=== PATIENT | female | born 1985 | race Hispanic/Latino ===

== ENCOUNTER 2018-03-02 14:34 | Observation (INO) | payer SELFPAY ==
[2018-03-02] MEDS ORDERED: Naloxone HCl 0.4 mg/ml Vial ONE ×2 (14:57→15:01)
[2018-03-02] MEDS ORDERED: Atropine Sulfate 1 mg/10 ml Syringe ONE (15:01)
[2018-03-02 15:23] LABS: Base Excess-Venous -0.5 mmol/L (0 (+/- 2.5)); Bicarbonate (HCO3v) 22.9 mmol/L (1.0-85.0); CO2 Tension (PvCO2) 33.7 mmHg (41.0-51.0); Calcium, Ionized 1.03 mmol/L (1.12-1.32); Hemoglobin - Calc 14.9 g/dL (12.0-18.0); Lactate 1.04 mmol/L (0.50-2.20); O2 Tension (PvO2) 49.1 mmHg (35.0-45.0); Potassium 4.2 mmol/L (3.4-4.7); pH (Venous) 7.442 (7.35-7.45); vO2 Saturation-calc 86.2 % (94-98)
[2018-03-02 15:24] LABS: Bilirubin Negative (Negative); Blood, Urine Negative (Negative); Clarity CLOUDY (Clear); Glucose, Urine (Dipstick) Negative (Negative); Leukocyte Negative (Negative); Nitrite Negative (Negative); Protein, Urine (Dipstick) Trace mg/dL (Neg-Trace); Specific Gravity, Urine 1.021 (1.002-1.036); Urobilinogen 0.2 mg/dL (0.2-1.0); pH, Urine 7.5 (5.0-9.0)
[2018-03-02 15:24] LABS: #Lymphocytes 1.4 thou/uL (1.20-3.40); #Monocytes 0.3 thou/uL (0.11-0.59); %Basophils 0.1 % (0.0-1.0); %Eosinophils 0.1 % (0.0-10.0); %Lymphocytes 8.5 % (21.0-51.0); %Monocytes 1.6 % (0.0-10.0); %Neutrophils 89.7 % (42.0-75.0); Mean Corpuscular HGB CONC 33.9 g/dL (32.0-36.0); Mean Corpuscular Hemoglobin 31.5 pg (27.0-31.0); Mean Corpuscular Volume 93.2 fl (81.0-99.0); Platelet Count 172 thou/uL (130-400); Red Blood Cell (RBC) Count 4.76 mill/uL (4.20-5.40); White Blood Cell (WBC) Count 16.7 thou/uL (4.8-10.8)
[2018-03-02 15:25] LABS: Pregnancy Test - Urine (BHCG) Negative (Negative); Pregu Control Background? CLEAR/WHITE (CLR/WHITE); Pregu Control Bar Appear? YES (CONTROL BAR); Specific Gravity 1.021 (1.002-1.036)
[2018-03-02 15:33] LABS: Medtox Reader # READER 4
[2018-03-02 15:34] LABS: Amphetamine Not Detected (NotDetected); Barbiturates Screen Not Detected (NotDetected); Benzodiazepine Screen Detected (NotDetected); Cocaine Metabolite Screen Not Detected (NotDetected); Medtox Control Line Valid? VALID (VALID); Methadone Not Detected (NotDetected); Methamphetamine Not Detected (NotDetected); Opiate Screen Not Detected (NotDetected); Oxycodone Screen Not Detected (NotDetected); Phencyclidine (PCP) Not Detected (NotDetected); THC/Cannabinoid Screen Detected (NotDetected); Tricyclic Screen Not Detected (NotDetected)
[2018-03-02 15:43] LABS: ALT (SGPT) 16 U/L (8-55); AST (SGOT) 9 U/L (5-34); Albumin 3.7 g/dL (3.5-5.0); Alkaline Phosphatase 32 U/L (40-150); Anion Gap 12 mmol/L (10-20); BUN (Urea Nitrogen) 11 mg/dL (7.0-18.7); Bilirubin, Total 0.4 mg/dL (0.2-1.2); Calc. Creatinine Clearance 0 mL/min (70-130); Calcium 8.1 mg/dL (7.8-10.44); Carbon Dioxide 20 mmol/L (22-29); Chloride 114 mmol/L (98-107); Estimated GFR-MDRD Greater than 90; Globulin 2.6 g/dL (2.4-3.5); Glucose 120 mg/dL (70-105); Lipase 7 U/L (8-78); Potassium 3.6 mmol/L (3.5-5.1); Protein, Total 6.3 g/dL (6.0-8.3); Sodium 142 mmol/L (136-145)
--- NOTE | 2018-03-02 16:46 | PDOC.FPRHP ---
- History of Present Illness Chief Complaint: ams, nv, abd pain History of Present Illness: 32 yo F w/o prior medical hx presents for AMS, abd pain, nv and polysubstance abuse. Family reports she took vicadin and xanax yesterday and smokes marijuana regularly. No trauma. ED Course: Narcan, atropine - Allergies/Adverse Reactions Allergies Allergy/AdvReac Type Severity Reaction Status Date / Time No Known Drug Allergies Allergy Verified 03/02/18 18:43 - History PMHx: Drug abuse PSHx: X2 FHx: CAD, HTN, DMII Social: Current everyday smoker, drug abuse, denies alcohol - Review of Systems ROS unobtainable: due to mental status Gastrointestinal: reports: nausea, vomiting, abdominal pain - Vital signs BP: 144/86 HR: 48-65 RR: 16-22 Tmax: 98.5 Pox: 100% on RA Wt: 81Kg - Physical Exam Constitutional: other (sleeping, difficult to arouse) HEENT: normocephalic and atraumatic, PERRLA, conjunctiva clear, no scleral icterus Neck: no LAD Heart: RRR, normal S1/S2, no murmurs/rubs/gallops, no edema Lungs: CTAB, no respiratory distress, good air movement, no rales/rhonchi, no wheezing, other (sonorous breath sounds) Abdomen: soft, non-tender, bowel sounds present, no masses/distention Neurological: no focal deficit, other (moving all extremities) Skin: capillary refill <2 seconds Heme/Lymphatic: no unusual bruising or bleeding, no purpura FMR H&P: Results - Labs Result Diagrams: 03/02/18 15:16 03/02/18 15:16 Lab results: WBC 16.7 thou/uL (4.8-10.8) H 03/02/18 15:16 Hgb 15.0 g/dL (12.0-16.0) 03/02/18 15:16 Hct 44.4 % (36.0-47.0) 03/02/18 15:16 MCV 93.2 fl (81.0-99.0) 03/02/18 15:16 Plt Count 172 thou/uL (130-400) 03/02/18 15:16 Neutrophils % 89.7 % (42.0-75.0) H 03/02/18 15:16 VBG pCO2 33.7 mmHg (41.0-51.0) L 03/02/18 15:18 VBG pO2 49.1 mmHg (35.0-45.0) H 03/02/18 15:18 Sodium 142 mmol/L (136-145) 03/02/18 15:16 Potassium 3.6 mmol/L (3.5-5.1) 03/02/18 15:16 Chloride 114 mmol/L (98-107) H 03/02/18 15:16 Carbon Dioxide 20 mmol/L (22-29) L 03/02/18 15:16 BUN 11 mg/dL (7.0-18.7) 03/02/18 15:16 Creatinine 0.66 mg/dL (0.6-1.1) 03/02/18 15:16 Glucose 120 mg/dL (70-105) H 03/02/18 15:16 Calcium 8.1 mg/dL (7.8-10.44) 03/02/18 15:16 Total Bilirubin 0.4 mg/dL (0.2-1.2) 03/02/18 15:16 AST 9 U/L (5-34) 03/02/18 15:16 ALT 16 U/L (8-55) 03/02/18 15:16 Alkaline Phosphatase 32 U/L (40-150) L 03/02/18 15:16 Serum Total Protein 6.3 g/dL (6.0-8.3) 03/02/18 15:16 Albumin 3.7 g/dL (3.5-5.0) 03/02/18 15:16 Lipase 7 U/L (8-78) L 03/02/18 15:16 Urine Ketones Negative mg/dL (Negative) 03/02/18 Unknown Urine Blood Negative (Negative) 03/02/18 Unknown Urine Nitrite Negative (Negative) 03/02/18 Unknown Ur Leukocyte Esterase Negative (Negative) 03/02/18 Unknown - EKG Interpretation EKG: sinus bradycardia FMR H&P: A/P - Problem List (1) Symptomatic sinus bradycardia Current Visit: Yes Status: Acute Code(s): R00.1 - BRADYCARDIA, UNSPECIFIED (2) Encephalopathy, toxic Current Visit: Yes Status: Acute Code(s): G92 - TOXIC ENCEPHALOPATHY (3) Cannabinoid hyperemesis syndrome Current Visit: Yes Status: Acute Code(s): F12.988 - CANNABIS USE, UNSP WITH OTHER CANNABIS-INDUCED DISORDER - Plan 1) Symptomatic sinus asael: -pt currently fluctuating from low 50s to 80s -will admit to tele and monitor overnight -likely 2/2 benzo OD -IVF NS, monitor 2)Toxic encephalopathy 2/2 polysubstance abuse -UDS benzos and marijuana - IVF NS -Tele OBS overnight -NPO until mental status improves 3) Cannabinoid hyperemesis syndrome, suspected: -supportive care -monitor on tele - IVF NS Disposition/LOS: stable, </= 2 days FMR H&P: Upper Level - Plan Date/Time: 03/02/185 I, [], have evaluated this patient and agree with findings/plan as outlined by internet network specialist resident. Pertinent changes/additions are listed here. Attending Addendum - Attending Addendum Date/Time: 03/02/182007 I personally evaluated the patient and discussed the management with Dr. Chance. I agree with and repeated the History, Examination, Assessment and Plan documented above with any addition or exceptions noted below. Acute encephalopathy in the setting of polysubstance abuse with persistent nausea and vomiting. I strongly suspect excess of BZD taken, but patient denies. She is currently AOX3 and has no complaints. Will continue on tele. SAMUEL frederick to r/o biliary pathology.
[2018-03-02 17:21] LABS: Troponin I Less than 0.010 ng/mL (< 0.028)
[2018-03-02] MEDS ORDERED: Acetaminophen 325 MG TAB PO PRN (18:44)
[2018-03-02] MEDS ORDERED: Ondansetron ODT 4 MG TAB SL PRN (18:44)
[2018-03-02 18:49] VITALS: BMI 31.4
[2018-03-02 19:38] LABS: Troponin I Less than 0.010 ng/mL (< 0.028)
[2018-03-02] MEDS: Sodium Chloride 0.9% 1,000 ML IV SCH ×2 (19:51→20:52)
[2018-03-02] MEDS: Ondansetron HCl/PF 4 MG/2 ML Vial IVP PRN (20:53)
[2018-03-02] MEDS: Famotidine 20 MG TAB PO SCH (20:53)
[2018-03-02] MEDS: Nicotine 14 MG PATCH TD SCH (20:54)
[2018-03-02 22:02] LABS: Troponin I Less than 0.010 ng/mL (< 0.028)
[2018-03-03] MEDS: Sodium Chloride 0.9% 1,000 ML IV SCH ×3 (03:52→15:33)
[2018-03-03] MEDS: Acetaminophen 325 MG TAB PO PRN ×2 (04:08→16:04)
[2018-03-03 04:26] LABS: #Lymphocytes 1.9 thou/uL (1.20-3.40); #Monocytes 0.5 thou/uL (0.11-0.59); #Neutrophils 15.2 thou/uL (1.40-6.50); %Basophils 0.2 % (0.0-1.0); %Eosinophils 0.1 % (0.0-10.0); %Lymphocytes 10.9 % (21.0-51.0); %Monocytes 2.6 % (0.0-10.0); %Neutrophils 86.1 % (42.0-75.0); Hemoglobin 14.8 g/dL (12.0-16.0); Mean Corpuscular HGB CONC 34.3 g/dL (32.0-36.0); Mean Corpuscular Hemoglobin 31.9 pg (27.0-31.0); Mean Corpuscular Volume 92.8 fl (81.0-99.0); Mean Platelet Volume 9.6 fL (7.4-10.4); Platelet Count 173 thou/uL (130-400); RBC Distribution Width 11.9 % (11.5-14.5); Red Blood Cell (RBC) Count 4.64 mill/uL (4.20-5.40); White Blood Cell (WBC) Count 17.7 thou/uL (4.8-10.8)
[2018-03-03 04:40] LABS: Anion Gap 12 mmol/L (10-20); BUN (Urea Nitrogen) 6 mg/dL (7.0-18.7); Calc. Creatinine Clearance 179 mL/min (70-130); Carbon Dioxide 21 mmol/L (22-29); Chloride 106 mmol/L (98-107); Estimated GFR-MDRD Greater than 90; Glucose 120 mg/dL (70-105); Potassium 3.6 mmol/L (3.5-5.1); Sodium 135 mmol/L (136-145)
--- NOTE | 2018-03-03 05:50 | PDOC.FM ---
- Subjective Subjective: Pt doing well this morning. Reports being tired. Denies any headaches, lightheadness or feeling of passing out. Denies any acute events overnight. Pt itterates she has no recollection of the events yesterday. Denies any chest pain or SOB - Objective MAR Reviewed: Yes Vital Signs & Weight: Vital Signs (12 hours) Temp Pulse Resp BP Pulse Ox 03/03/18 03:35 98.8 F 46 L 16 148/60 H 97 03/02/18 23:05 47 L 18 172/72 H 99 03/02/18 20:50 98.1 F 46 L 16 03/02/18 18:48 98 Weight Weight 90.945 kg I&O: 03/01/18 03/02/18 03/03/18 06:59 06:59 06:59 Intake Total 1225 Balance 1225 Result Diagrams: 03/03/18 04:02 03/03/18 04:02 EKG Reviewed by me: Yes <Jaspal Bansal - Last Filed: 03/03/18 08:07> - Objective Vital Signs & Weight: Vital Signs (12 hours) Temp Pulse Resp BP Pulse Ox 03/03/18 15:15 99.1 F 50 L 18 175/90 H 96 03/03/18 11:35 98.4 F 54 L 16 193/95 H 96 03/03/18 08:00 99.1 F 47 L 18 03/03/18 07:30 99.1 F 47 L 18 183/87 H 97 Weight Weight 90.945 kg I&O: 03/02/18 03/03/18 03/04/18 06:59 06:59 06:59 Intake Total 1227 1615 Balance 1227 1615 Result Diagrams: 03/03/18 04:02 03/03/18 04:02 <Jamila Tyler - Last Filed: 03/03/18 18:46> Phys Exam - Physical Examination Constitutional: NAD HEENT: PERRLA, moist MMs Neck: no nodes, no JVD, supple Respiratory: no wheezing, no rales, no rhonchi, clear to auscultation bilateral Cardiovascular: no significant murmur, no rub bradycardic Gastrointestinal: soft, non-tender, no distention, positive bowel sounds Musculoskeletal: no edema, pulses present Neurological: non-focal, normal sensation, moves all 4 limbs Lymphatic: no nodes Psychiatric: normal affect, A&O x 3 Skin: no rash, normal turgor, cap refill <2 seconds <Jaspal Bansal - Last Filed: 03/03/18 08:07> Dx/Plan (1) Cannabinoid hyperemesis syndrome Code(s): F12.988 - CANNABIS USE, UNSP WITH OTHER CANNABIS-INDUCED DISORDER Status: Acute (2) Encephalopathy, toxic Code(s): G92 - TOXIC ENCEPHALOPATHY Status: Acute (3) Polysubstance abuse Code(s): F19.10 - OTHER PSYCHOACTIVE SUBSTANCE ABUSE, UNCOMPLICATED Status: Acute (4) Symptomatic sinus bradycardia Code(s): R00.1 - BRADYCARDIA, UNSPECIFIED Status: Acute - Plan Plan: 1) Symptomatic sinus asael: -pt currently in low 40's at this time -continue to monitor on tele. -likely 2/2 benzo OD -IVF NS, monitor -Pt awake doing fine, still bradycardic. 2)Toxic encephalopathy 2/2 polysubstance abuse -UDS benzos and marijuana - IVF NS -Tele OBS overnight -NPO until mental status improves 3) Cannabinoid hyperemesis syndrome, suspected: -supportive care, hot shower -general counselor on cessation -monitor on tele - IVF NS <Jaspal Bansal - Last Filed: 03/03/18 08:07> Attending Addendum - Attending Addendum Date/Time: 03/03/18 1843 I personally evaluated the patient and discussed the management with Dr. Bansal. I agree with the History, Examination, Assessment and Plan documented above with any addition or exceptions noted below. The patient is still nauseated this morning. RUQ u/s pending. Heart rate in the mid-50's during our visit. Asymptomatic from a bradycardia standpoint. If u/s ok and pt tolerates po, may be able to discharge. <Jamila Tyler - Last Filed: 03/03/18 18:46>
[2018-03-03] MEDS: Ondansetron HCl/PF 4 MG/2 ML Vial IVP PRN ×3 (05:56→21:34)
--- NOTE | 2018-03-03 08:04 | ULT ---
GALLBLADDER ULTRASOUND: Date: 03/03/18 HISTORY: Abdominal pain. Nausea. Vomiting. COMPARISON: None. TECHNIQUE: Utilizing a multihertz transducer, sonographic imaging of the right upper quadrant is performed in th e longitudinal and transverse plane. FINDINGS: The hepatic parenchyma has a normal echotexture. No hepatic masses or intrahepatic biliary dilatation . Contour of the hepatic margin is maintained. Right hepatic lobe measures 15.8 cm. There is evidence of sludge within the lumen of the gallbladder. Gallbladder wall is not thickened. N o pericholecystic fluid. Negative Palumbo's sign. Right kidney: Normal echotexture. No hydronephrosis. 4.5 x 10.8 x 5.5 cm. Common bile duct diameter is 0.5 cm. IMPRESSION: Sludge. No sonographic evidence of cholecystitis. POS: [facility]
[2018-03-03] MEDS: Famotidine 20 MG TAB PO SCH ×2 (08:20→21:42)
[2018-03-03] MEDS ORDERED: Promethazine 25 MG TAB PO PRN (13:14)
[2018-03-03] MEDS ORDERED: Labetalol HCl 100 MG/20 ML VIAL SLOW IVP PRN (14:40)
[2018-03-03] MEDS ORDERED: Promethazine HCl 25 MG/ML VIAL IM PRN (16:47)
[2018-03-03] MEDS: Nicotine 14 MG PATCH TD SCH (21:13)
[2018-03-04] MEDS: Sodium Chloride 0.9% 1,000 ML IV SCH ×4 (01:54→21:16)
[2018-03-04 05:03] LABS: #Lymphocytes 2.9 thou/uL (1.20-3.40); #Monocytes 0.7 thou/uL (0.11-0.59); #Neutrophils 8.8 thou/uL (1.40-6.50); %Basophils 0.4 % (0.0-1.0); %Eosinophils 0.3 % (0.0-10.0); %Lymphocytes 23.5 % (21.0-51.0); %Monocytes 5.8 % (0.0-10.0); Hemoglobin 14.4 g/dL (12.0-16.0); Mean Corpuscular HGB CONC 34.6 g/dL (32.0-36.0); Mean Corpuscular Hemoglobin 32.1 pg (27.0-31.0); Mean Corpuscular Volume 92.7 fl (81.0-99.0); Mean Platelet Volume 9.5 fL (7.4-10.4); Platelet Count 165 thou/uL (130-400); RBC Distribution Width 11.8 % (11.5-14.5); White Blood Cell (WBC) Count 12.5 thou/uL (4.8-10.8)
--- NOTE | 2018-03-04 06:32 | PDOC.FM ---
- Subjective Subjective: Pt reports having one episode of vomiting yesterday. Denies any fever or chills. Denies any pain. Pt doing well. Denies any acute events overnight. pt interested in Drug rehab. Case management consulted. - Objective MAR Reviewed: Yes Vital Signs & Weight: Vital Signs (12 hours) Temp Pulse Resp BP Pulse Ox 03/04/18 03:07 99.2 F 49 L 16 179/87 H 95 03/03/18 23:34 98.9 F 47 L 14 172/86 H 95 03/03/18 20:46 99.2 F 49 L 16 03/03/18 18:52 99.1 F 57 L 18 177/89 H 94 L Weight Weight 90.945 kg I&O: 03/02/18 03/03/18 03/04/18 06:59 06:59 06:59 Intake Total 1227 1617 Balance 1227 1617 Result Diagrams: 03/04/18 04:21 03/03/18 04:02 EKG Reviewed by me: Yes <Jaspal Bansal - Last Filed: 03/04/18 08:27> - Objective Vital Signs & Weight: Vital Signs (12 hours) Temp Pulse Resp BP BP Pulse Ox 03/04/18 17:38 187/86 H 03/04/18 17:20 187/86 H 03/04/18 16:45 186/91 H 03/04/18 16:08 50 L 03/04/18 15:04 98.4 F 50 L 20 181/93 H 97 03/04/18 12:00 98.6 F 46 L 22 H 182/91 H 98 03/04/18 08:00 98.4 F 47 L 18 03/04/18 07:40 98.4 F 47 L 18 178/89 H 95 Weight Weight 90.718 kg I&O: 03/03/18 03/04/18 03/05/18 06:59 06:59 06:59 Intake Total 1227 3237 2133 Output Total 350 Balance 1227 3237 1783 Result Diagrams: 03/04/18 04:21 03/03/18 04:02 <Jamila Tyler - Last Filed: 03/04/18 18:05> Phys Exam - Physical Examination Constitutional: NAD HEENT: PERRLA, moist MMs Neck: no nodes, no JVD, supple, full ROM Respiratory: no wheezing, no rales, no rhonchi, clear to auscultation bilateral Cardiovascular: RRR, no significant murmur, no rub Gastrointestinal: soft, non-tender, no distention, positive bowel sounds Musculoskeletal: no edema, pulses present Neurological: non-focal, normal sensation, moves all 4 limbs Lymphatic: no nodes Psychiatric: normal affect, A&O x 3 Skin: no rash, normal turgor, cap refill <2 seconds <Jaspal Bansal - Last Filed: 03/04/18 08:27> Dx/Plan (1) Cannabinoid hyperemesis syndrome Code(s): F12.988 - CANNABIS USE, UNSP WITH OTHER CANNABIS-INDUCED DISORDER Status: Acute (2) Encephalopathy, toxic Code(s): G92 - TOXIC ENCEPHALOPATHY Status: Acute (3) Polysubstance abuse Code(s): F19.10 - OTHER PSYCHOACTIVE SUBSTANCE ABUSE, UNCOMPLICATED Status: Acute (4) Symptomatic sinus bradycardia Code(s): R00.1 - BRADYCARDIA, UNSPECIFIED Status: Resolved - Plan Plan: 1) Intractable Vomiting -Possibly gastroenteritis. -IVF NS -Phenegran and Zofran. May need to give some reglan -Electrolytes stable. -Possibly related to problem #3 2)Toxic encephalopathy 2/2 polysubstance abuse-RESOLVED -UDS benzos and marijuana - IVF NS -Tele OBS overnight. -pt interested in drug rehab. Case management consulted. 3) Cannabinoid hyperemesis syndrome, suspected: -supportive care, hot shower -counselor nurses[employer] association on cessation -monitor on tele - IVF NS <Jaspal Bansal - Last Filed: 03/04/18 08:27> Attending Addendum - Attending Addendum Date/Time: 03/04/181803 I personally evaluated the patient and discussed the management with Dr. Bansal. I agree with the History, Examination, Assessment and Plan documented above with any addition or exceptions noted below. Patient still complains of abdominal cramping. Will add bentyl to see if this helps. Discussed following a bland diet. Case mgmt consult for resources for drug rehab. If pt tolerates po, may d/c home this afternoon. <Jamila Tyler - Last Filed: 03/04/18 18:05>
[2018-03-04] MEDS: Ondansetron ODT 4 MG TAB PO PRN ×3 (08:48→23:00)
[2018-03-04] MEDS: Famotidine 20 MG TAB PO SCH ×2 (12:03→20:28)
[2018-03-04] MEDS ORDERED: Metoclopramide HCl 10 MG/2 ML VIAL IVP PRN (15:45)
[2018-03-04] MEDS ORDERED: Amlodipine 5 MG TAB PO SCH (16:00)
[2018-03-04] MEDS: Dicyclomine 20 MG TAB PO SCH ×2 (16:08→20:28)
[2018-03-04] MEDS: Acetaminophen 325 MG TAB PO PRN (16:08)
[2018-03-04] MEDS ORDERED: Metoclopramide HCl 10 MG/2 ML VIAL IVP ONE (17:26)
[2018-03-04] MEDS: hydrALAZINE 20 MG/ML VIAL SLOW IVP PRN (17:38)
[2018-03-04] MEDS: Nicotine 14 MG PATCH TD SCH (19:07)
[2018-03-04] MEDS: Metoclopramide HCl 10 MG/2 ML VIAL IVP SCH (21:16)
[2018-03-05] MEDS: Metoclopramide HCl 10 MG/2 ML VIAL IVP SCH (05:06)
[2018-03-05] MEDS: Sodium Chloride 0.9% 1,000 ML IV SCH (06:51)
--- NOTE | 2018-03-05 08:18 | PDOC.FM ---
- Subjective Subjective: Pt says she is ready to go home. Yet still reports vomiting overnight. Pt did not eat much last night and drinking a little. Discussed with her needs to be able to keep PO down before discharge. Denies any fever or chills. Denies any constipation or diarrhea. Denies any SOB or chest pain. No other concerns at this time - Objective MAR Reviewed: Yes Vital Signs & Weight: Vital Signs (12 hours) Temp Pulse Resp BP Pulse Ox 03/05/18 02:59 99.0 F 52 L 14 179/83 H 97 03/04/18 23:20 98.5 F 51 L 16 162/76 H 97 Weight Weight 90.718 kg I&O: 03/04/18 03/05/18 03/06/18 06:59 06:59 06:59 Intake Total 3237 3623 Output Total 1250 Balance 3237 2373 Result Diagrams: 03/04/18 04:21 03/03/18 04:02 EKG Reviewed by me: Yes <Jaspal Bansal - Last Filed: 03/05/18 08:16> - Objective Vital Signs & Weight: Vital Signs (12 hours) Temp Pulse Resp BP BP Pulse Ox 03/05/18 11:35 98.6 F 51 L 20 177/94 H 97 03/05/18 10:20 54 L 176/81 H 03/05/18 09:19 45 L 188/89 H 03/05/18 08:15 98.6 F 54 L 20 03/05/18 08:00 98.6 F 54 L 20 194/88 H 96 03/05/18 02:59 99.0 F 52 L 14 179/83 H 97 Weight Weight 90.718 kg I&O: 03/04/18 03/05/18 03/06/18 06:59 06:59 06:59 Intake Total 3237 3623 100 Output Total 1250 Balance 3237 2373 100 Result Diagrams: 03/04/18 04:21 03/05/18 07:45 <Jamila Tyler - Last Filed: 03/05/18 14:32> Phys Exam - Physical Examination Constitutional: NAD HEENT: PERRLA, moist MMs Neck: no nodes, supple, full ROM Respiratory: no wheezing, no rales, no rhonchi, clear to auscultation bilateral Cardiovascular: RRR, no significant murmur, no rub Gastrointestinal: soft, non-tender, no distention, positive bowel sounds Musculoskeletal: no edema, pulses present Neurological: non-focal, moves all 4 limbs Lymphatic: no nodes Psychiatric: normal affect, A&O x 3 Skin: no rash, normal turgor, cap refill <2 seconds <Jaspal Bansal - Last Filed: 03/05/18 08:16> Dx/Plan (1) Cannabinoid hyperemesis syndrome Code(s): F12.988 - CANNABIS USE, UNSP WITH OTHER CANNABIS-INDUCED DISORDER Status: Acute (2) Encephalopathy, toxic Code(s): G92 - TOXIC ENCEPHALOPATHY Status: Acute (3) Polysubstance abuse Code(s): F19.10 - OTHER PSYCHOACTIVE SUBSTANCE ABUSE, UNCOMPLICATED Status: Acute (4) Symptomatic sinus bradycardia Code(s): R00.1 - BRADYCARDIA, UNSPECIFIED Status: Resolved - Plan Plan: 1) Intractable Vomiting -Possibly gastroenteritis. -IVF NS -Phenegran and Zofran. michael reglan at this time. -Electrolytes stable. -Possibly related to problem #3 and likely related to withdrawl sx's from drug use. Will continue to advance diet as tolerated. Stable for discharge once able to keep down PO 2)Toxic encephalopathy 2/2 polysubstance abuse-RESOLVED -UDS benzos and marijuana - IVF NS -Tele OBS overnight. -pt interested in drug rehab. Case management consulted. 3) Cannabinoid hyperemesis syndrome, suspected: -supportive care, hot shower -grief counsellor on cessation -monitor on tele - IVF NS 4) Elevated BP -BP been elevated. Not sure if related to withdrawl from drug use or underlying HTN -Hydralazine PRN for sbp>180 -started on norvasc at this time to manage and lower bp -Needs to f/u with pcp for assessment <Jaspal Bansal - Last Filed: 03/05/18 08:16> Attending Addendum - Attending Addendum Date/Time: 03/05/18 1059 I personally evaluated the patient and discussed the management with Dr. Bansal. I agree with the History, Examination, Assessment and Plan documented above with any addition or exceptions noted below. Patient was able to eat breakfast without vomiting. She has been started on scheduled reglan and bentyl and is feeling better. She is requesting to go home. <Jamila Tyler - Last Filed: 03/05/18 14:32>
[2018-03-05 08:22] LABS: Anion Gap 14 mmol/L (10-20); BUN (Urea Nitrogen) 9 mg/dL (7.0-18.7); Calc. Creatinine Clearance 155 mL/min (70-130); Calcium 9.3 mg/dL (7.8-10.44); Carbon Dioxide 21 mmol/L (22-29); Chloride 104 mmol/L (98-107); Estimated GFR-MDRD 89; Glucose 101 mg/dL (70-105); Potassium 3.3 mmol/L (3.5-5.1); Sodium 136 mmol/L (136-145)
[2018-03-05 08:29] VITALS: TEMP 98.6
[2018-03-05] MEDS ORDERED: Amlodipine 5 MG TAB PO SCH (09:00)
[2018-03-05] MEDS: Famotidine 20 MG TAB PO SCH (09:12)
[2018-03-05] MEDS: Dicyclomine 20 MG TAB PO SCH (09:13)
[2018-03-05] MEDS: Acetaminophen 325 MG TAB PO PRN (09:13)
[2018-03-05] MEDS: hydrALAZINE 20 MG/ML VIAL SLOW IVP PRN (09:19)
[2018-03-05 11:35] VITALS: BP 177/94
[2018-03-05] MEDS ORDERED: Metoclopramide HCl 10 MG TAB PO SCH (14:00)
== END 2018-03-05 12:34 | disposition home or self-care (01) ==
LOC: ERS 14:34 → 2SW 18:46
PROVIDERS: ADMIT Emergency Medicine; ATTEND Emergency Medicine
DX: F12.188 Cannabis abuse with other cannabis-induced disorder (principal); F11.10 Opioid abuse, uncomplicated; F19.10 Other psychoactive substance abuse, uncomplicated; R00.1 Bradycardia, unspecified; G92 Toxic encephalopathy
CPT/HCPCS: 36415; 51701; 76705; 80048; 80053; 80306; 81003; 81025; 82330; 82803; 83605; 83690; 84484; 85025; 93005; 96361; 96372; 96374; 96375; 96376; A4353; G0378; J0360; J0461; J2310; J2405; J2765; Q0162

== ENCOUNTER 2018-08-24 21:36 | Inpatient (IN) | payer SELFPAY ==
[~2018-08-24 21:36] MED LIST: ISOVUE-370 76%-LOCM 1 ML ONE
[2018-08-24 21:56] LABS: #Basophils 0.1 thou/uL (0.0-0.2); #Eosinphils 0.3 thou/uL (0.0-0.7); #Lymphocytes 4.7 thou/uL (1.20-3.40); #Monocytes 0.5 thou/uL (0.11-0.59); #Neutrophils 5.3 thou/uL (1.40-6.50); %Basophils 0.9 % (0.0-1.0); %Eosinophils 2.8 % (0.0-10.0); %Lymphocytes 43.1 % (21.0-51.0); %Monocytes 4.4 % (0.0-10.0); %Neutrophils 48.8 % (42.0-75.0); Hemoglobin 14.1 g/dL (12.0-16.0); Mean Corpuscular HGB CONC 33.7 g/dL (32.0-36.0); Mean Corpuscular Hemoglobin 31.8 pg (27.0-31.0); Mean Corpuscular Volume 94.1 fL (78.0-98.0); Mean Platelet Volume 9.4 fL (7.4-10.4); Platelet Count 162 thou/uL (130-400); RBC Distribution Width 11.8 % (11.5-14.5); Red Blood Cell (RBC) Count 4.45 mill/uL (4.20-5.40); White Blood Cell (WBC) Count 10.8 thou/uL (4.8-10.8)
[2018-08-24 22:06] LABS: BHCG - Serum Negative (NEGATIVE); Pregs Control Background? CLEAR/WHITE (CLR/WHITE); Pregs Control Bar Appear? YES (CONTROL BAR)
[2018-08-24 22:16] LABS: ALT (SGPT) 26 U/L (8-55); AST (SGOT) 15 U/L (5-34); Albumin 3.9 g/dL (3.5-5.0); Alkaline Phosphatase 38 U/L (40-150); Anion Gap 11 mmol/L (10-20); BUN (Urea Nitrogen) 7 mg/dL (7.0-18.7); Bilirubin, Total 0.3 mg/dL (0.2-1.2); Calc. Creatinine Clearance 0 mL/min (70-130); Calcium 8.5 mg/dL (7.8-10.44); Carbon Dioxide 22 mmol/L (22-29); Chloride 108 mmol/L (98-107); Estimated GFR-MDRD 85; Globulin 2.9 g/dL (2.4-3.5); Glucose 106 mg/dL (70-105); Potassium 3.4 mmol/L (3.5-5.1); Protein, Total 6.8 g/dL (6.0-8.3); Sodium 138 mmol/L (136-145)
[2018-08-24] MEDS ORDERED: Morphine 2 MG/ML SYRINGE ONE (22:23)
[2018-08-24] MEDS ORDERED: Ketorolac Tromethamine 30 MG/ML VIAL ONE (22:23)
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
[2018-08-24] MEDS ORDERED: Lidocaine 1% PF 5 ML VIAL ONE (22:35)
[2018-08-24] MEDS ORDERED: Lidocaine 1% w/Epinephrine 1:100K 20 ML VIAL ONE (22:35)
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
[2018-08-24 22:40] LABS: Bilirubin Negative (Negative); Blood, Urine Large (Negative); Clarity CLEAR (Clear); Glucose, Urine (Dipstick) Negative (Negative); Leukocyte Negative (Negative); Nitrite Negative (Negative); Protein, Urine (Dipstick) Negative (Neg-Trace); Urobilinogen 0.2 mg/dL (0.2-1.0)
[2018-08-24 22:42] LABS: Bacteria/HPF None Seen HPF (None Seen); WBC/HPF 0-3 HPF (0-3)
[2018-08-24 22:44] LABS: Pathc Cast-AUWi Flag 4.21 (0-2.49)
[2018-08-24 22:45] LABS: Hyaline Casts/LPF 4-6 HYALINE CAST LPF (0-3 Hyaline); Specific Gravity, Urine 1.051 (1.002-1.036)
[2018-08-24] MEDS ORDERED: Midazolam HCl 2 mg/2 ml Vial ONE (22:49)
[2018-08-24] MEDS ORDERED: Adacel (T-DAP) 0.5 ML VIAL ONE (22:49)
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
[2018-08-25] MEDS ORDERED: Morphine 2 MG/ML SYRINGE IVP PRN (01:38)
[2018-08-25] MEDS ORDERED: Promethazine HCl 25 MG/ML VIAL IM PRN ×3 (01:38→12:36)
[2018-08-25] MEDS ORDERED: Ondansetron HCl/PF 4 MG/2 ML Vial IVP PRN ×2 (01:38→12:36)
[2018-08-25] MEDS ORDERED: Dextrose 5% in Water 1,000 ML IV PRN (01:38)
[2018-08-25] MEDS ORDERED: Ondansetron ODT 4 MG TAB PO PRN (01:38)
[2018-08-25] MEDS ORDERED: Dextrose 50% Abboject 50 ML SYRINGE SLOW IVP PRN (01:38)
[2018-08-25] MEDS: Morphine 4 MG/ML VIAL SLOW IVP PRN ×3 (02:05→17:14)
[2018-08-25] MEDS: Sodium Chloride 0.9% 1,000 ML IV SCH ×3 (02:06→19:19)
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
[2018-08-25 03:14] VITALS: BMI 36.1
[2018-08-25 05:36] LABS: #Eosinphils 0.2 thou/uL (0.0-0.7); #Lymphocytes 2.9 thou/uL (1.20-3.40); #Monocytes 0.6 thou/uL (0.11-0.59); #Neutrophils 6.8 thou/uL (1.40-6.50); %Basophils 0.5 % (0.0-1.0); %Eosinophils 2.1 % (0.0-10.0); %Lymphocytes 27.1 % (21.0-51.0); %Neutrophils 64.3 % (42.0-75.0); Hemoglobin 13.4 g/dL (12.0-16.0); Mean Corpuscular HGB CONC 32.2 g/dL (32.0-36.0); Mean Corpuscular Hemoglobin 30.8 pg (27.0-31.0); Mean Corpuscular Volume 95.7 fL (78.0-98.0); Platelet Count 128 thou/uL (130-400); RBC Distribution Width 11.8 % (11.5-14.5); Red Blood Cell (RBC) Count 4.34 mill/uL (4.20-5.40); White Blood Cell (WBC) Count 10.6 thou/uL (4.8-10.8)
[2018-08-25 05:41] LABS: Anion Gap 12 mmol/L (10-20); BUN (Urea Nitrogen) 5 mg/dL (7.0-18.7); Calc. Creatinine Clearance 171 mL/min (70-130); Calcium 8.4 mg/dL (7.8-10.44); Carbon Dioxide 21 mmol/L (22-29); Chloride 112 mmol/L (98-107); Estimated GFR-MDRD Greater than 90; Glucose 82 mg/dL (70-105); Potassium 3.8 mmol/L (3.5-5.1); Sodium 141 mmol/L (136-145)
[2018-08-25] MEDS: Ketorolac Tromethamine 30 MG/ML VIAL IVP SCH ×3 (05:58→17:57)
[2018-08-25] MEDS: Acetaminophen 1,000 MG in Premix Bag 1 BAG IVPB SCH ×3 (05:58→17:57)
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
[2018-08-25] MEDS: Famotidine 20 MG TAB PO SCH ×2 (08:01→23:05)
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
[2018-08-25] MEDS ORDERED: CEFAZOLIN/Water 2 GM/20 ML SYRINGE ONE (10:29)
[2018-08-25] MEDS ORDERED: Fentanyl 100 MCG/2 ML VIAL ONE ×4 (10:54→13:15)
[2018-08-25] MEDS ORDERED: Midazolam HCl 2 mg/2 ml Vial ONE ×2 (10:55)
[2018-08-25] MEDS ORDERED: Dexamethasone 4 mg/ml Vial ONE (10:57)
[2018-08-25] MEDS ORDERED: Famotidine/PF 20 mg/2ml Vial ONE (10:57)
[2018-08-25] MEDS ORDERED: CEFAZOLIN/Water 2 GM/20 ML SYRINGE SLOW IVP SCH ×2 (11:00→18:00)
[2018-08-25] MEDS ORDERED: Ropivacaine 0.2% 550 ML 550 ML NERVE BLCK SCH (11:20)
[2018-08-25] MEDS ORDERED: Bupivacaine HCl 0.5%/Epinephrine 1:200,000/PF 30 ml Vial ONE ×2 (11:45→11:46)
[2018-08-25] MEDS ORDERED: Ropivacaine 0.5% HCl/PF (150 MG/30 ML VIAL) ONE (11:46)
[2018-08-25] MEDS ORDERED: Lidocaine 1% PF 5 ML VIAL ONE (12:30)
[2018-08-25] MEDS ORDERED: Succinylcholine Chloride 20 MG/ML 10 ml SYRINGE FS ONE (12:30)
[2018-08-25] MEDS ORDERED: Ondansetron HCl/PF 4 MG/2 ML Vial ONE (12:30)
[2018-08-25] MEDS ORDERED: PROPOFOL 200 MG/20 ML VIAL ONE (12:30)
[2018-08-25] MEDS ORDERED: Metoclopramide HCl 10 MG/2 ML VIAL ONE (12:30)
[2018-08-25] MEDS ORDERED: Dexamethasone 20 MG/5 ML VIAL ONE (12:30)
[2018-08-25] MEDS ORDERED: Ketorolac Tromethamine 30 MG/ML VIAL ONE (12:30)
[2018-08-25] MEDS ORDERED: Promethazine HCl 25 MG/ML VIAL SLOW IVP PRN (12:36)
[2018-08-25] MEDS ORDERED: Meperidine HCl/PF 25 MG/ML VIAL SLOW IVP PRN (12:36)
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
[2018-08-25] MEDS: CEFAZOLIN/Water 2 GM/20 ML SYRINGE SLOW IVP SCH (20:27)
[2018-08-26] MEDS: CEFAZOLIN/Water 2 GM/20 ML SYRINGE SLOW IVP SCH (03:32)
[2018-08-26] MEDS: Sodium Chloride 0.9% 1,000 ML IV SCH (04:06)
[2018-08-26] MEDS ORDERED: traMADol HCl 50 MG TAB PO PRN (05:56)
[2018-08-26] MEDS: Acetaminophen 500 MG TAB PO SCH ×3 (06:28→13:41)
[2018-08-26] MEDS: Ibuprofen 800 MG TAB PO SCH ×2 (06:28→08:28)
[2018-08-26] MEDS: traMADol HCl 50 MG TAB PO PRN ×2 (08:24→13:38)
[2018-08-26] MEDS ORDERED: Polyethylene Glycol 3350 17 GM Packet PO SCH (09:00)
[2018-08-26] MEDS ORDERED: Senokot S 8.6-50 MG TAB PO SCH (09:00)
[2018-08-26] MEDS ORDERED: Enoxaparin Sodium 40 MG/0.4 ML SYRINGE SC SCH (09:00)
[2018-08-26] MEDS: Famotidine 20 MG TAB PO SCH (10:41)
[2018-08-26 16:21] VITALS: TEMP 98.5
[2018-08-26 17:12] VITALS: BP 134/79
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
== END 2018-08-26 17:32 | disposition home or self-care (01) | DRG 494 ==
LOC: ERS 21:36 → SURG B 08-25 00:47
PROVIDERS: ADMIT Surgery; ATTEND Surgery
PROC: 0QSH04Z Reposition Left Tibia with Internal Fixation Device, Open Approach (ICD-10-PCS; principal; 2018-08-25)
PROC: 0PSJ04Z Reposition Left Radius with Internal Fixation Device, Open Approach (ICD-10-PCS; 2018-08-25)
DX: S52.512A Displaced fracture of left radial styloid process, initial encounter for closed fracture (principal); S82.52XA Displaced fracture of medial malleolus of left tibia, initial encounter for closed fracture; V89.2XXA Person injured in unspecified motor-vehicle accident, traffic, initial encounter; F17.210 Nicotine dependence, cigarettes, uncomplicated; R40.2413 Glasgow coma scale score 13-15, at hospital admission; S00.81XA Abrasion of other part of head, initial encounter
CPT/HCPCS: 12011; 25505; 27840; 36415; 51701; 70450; 71045; 72125; 74177; 76001; 80048; 80053; 81003; 81015; 84703; 85025; 86850; 86900; 86901; 90471; 90715; 93005; 94760; 96361; 96374; 96375; A4306; A4353; C1713; G0390; G8978-GP-CK; G8979-GP-CJ; J0131; J0670; J1100; J1650; J1885; J2001; J2250; J2270; J2405; J2704; J2765; J2795; J3010; S0028

== ENCOUNTER 2019-09-23 09:59 | Emergency (ER) | payer SELFPAY ==
[2019-09-23] MEDS ORDERED: Ondansetron PF 4 MG/2 ML Vial ONE (10:32)
[2019-09-23 10:39] LABS: #Monocytes 0.4 thou/uL (0.11-0.59); #Neutrophils 12.2 thou/uL (1.40-6.50); %Basophils 0.3 % (0.0-1.0); %Eosinophils 0.1 % (0.0-10.0); %Lymphocytes 13.9 % (21.0-51.0); %Monocytes 2.7 % (0.0-10.0); %Neutrophils 83.1 % (42.0-75.0); Hemoglobin 16.1 g/dL (12.0-16.0); Mean Corpuscular HGB CONC 33.8 g/dL (32.0-36.0); Mean Corpuscular Hemoglobin 31.2 pg (27.0-31.0); Mean Corpuscular Volume 92.3 fL (78.0-98.0); Mean Platelet Volume 9.6 fL (7.4-10.4); Platelet Count 189 thou/uL (130-400); RBC Distribution Width 11.6 % (11.5-14.5); Red Blood Cell (RBC) Count 5.16 mill/uL (4.20-5.40); White Blood Cell (WBC) Count 14.7 thou/uL (4.8-10.8)
[2019-09-23 10:39] LABS: Bilirubin Small (Negative); Blood, Urine Small (Negative); Glucose, Urine (Dipstick) Negative (Negative); Leukocyte Negative (Negative); Nitrite Negative (Negative); Protein, Urine (Dipstick) 30 mg/dL (Neg-Trace)
[2019-09-23 10:40] LABS: Clarity Turbid (Clear)
[2019-09-23 10:41] LABS: Pregnancy Test - Urine (BHCG) Negative (Negative); Pregu Control Background? CLEAR/WHITE (CLR/WHITE); Pregu Control Bar Appear? YES (CONTROL BAR); Specific Gravity 1.033 (1.002-1.036)
[2019-09-23 10:48] LABS: Bacteria/HPF 1+ HPF (None Seen); RBC/HPF 0-3 HPF (0-3); Squamous Epithelial 0-3 HPF (0-3); WBC/HPF None Seen HPF (0-3)
[2019-09-23] MEDS ORDERED: Metoclopramide HCl 10 MG/2 ML VIAL ONE (10:51)
[2019-09-23] MEDS ORDERED: Haloperidol Lactate 5 MG/ML VIAL ONE (10:51)
[2019-09-23 10:53] LABS: ALT (SGPT) 119 U/L (8-55); AST (SGOT) 55 U/L (5-34); Albumin 4.6 g/dL (3.5-5.0); Alkaline Phosphatase 53 U/L (40-110); Anion Gap 13 mmol/L (10-20); BUN (Urea Nitrogen) 17 mg/dL (7.0-18.7); Bilirubin, Total 0.9 mg/dL (0.2-1.2); Calc. Creatinine Clearance 0 mL/min (70-130); Calcium 9.3 mg/dL (7.8-10.44); Carbon Dioxide 24 mmol/L (22-29); Chloride 104 mmol/L (98-107); Estimated GFR-MDRD 78; Globulin 3.5 g/dL (2.4-3.5); Glucose 123 mg/dL (70-105); Lipase 15 U/L (8-78); Potassium 3.6 mmol/L (3.5-5.1); Protein, Total 8.1 g/dL (6.0-8.3); Sodium 137 mmol/L (136-145)
[2019-09-23 10:56] LABS: BHCG - Serum Negative (NEGATIVE); Pregs Control Background? CLEAR/WHITE (CLR/WHITE); Pregs Control Bar Appear? YES (CONTROL BAR)
== END 2019-09-23 12:25 | disposition home or self-care (01) ==
LOC: ERS 09:59
DX: E86.0 Dehydration (principal); F12.188 Cannabis abuse with other cannabis-induced disorder; F17.210 Nicotine dependence, cigarettes, uncomplicated
CPT/HCPCS: 80053; 81003; 81015; 81025; 82550; 83690; 84703; 85025; 96365; 96375; J1630; J2405; J2765

== ENCOUNTER 2020-05-08 11:56 | Emergency (ER) | payer OTHER, SELFPAY ==
[2020-05-08] MEDS ORDERED: Naloxone HCl 0.4 mg/ml Vial ONE ×2 (12:31→12:39)
[2020-05-08] MEDS ORDERED: Ondansetron PF 4 MG/2 ML Vial ONE (12:34)
[2020-05-08 12:56] LABS: #Basophils 0.1 thou/uL (0.0-0.2); #Eosinphils 0.6 thou/uL (0.0-0.7); #Lymphocytes 3.7 thou/uL (1.20-3.40); #Monocytes 0.9 thou/uL (0.11-0.59); #Neutrophils 12.4 thou/uL (1.40-6.50); %Basophils 0.5 % (0.0-1.0); %Eosinophils 3.3 % (0.0-10.0); %Lymphocytes 20.9 % (21.0-51.0); %Monocytes 4.9 % (0.0-10.0); %Neutrophils 70.3 % (42.0-75.0); Hemoglobin 17.5 g/dL (12.0-16.0); Mean Corpuscular HGB CONC 35.2 g/dL (32.0-36.0); Mean Corpuscular Hemoglobin 32.4 pg (27.0-31.0); Mean Platelet Volume 10.3 fL (7.4-10.4); Platelet Count 184 thou/uL (130-400); White Blood Cell (WBC) Count 17.7 thou/uL (4.8-10.8)
[2020-05-08 13:04] LABS: Bilirubin 1+ (Negative); Blood, Urine 1+ (Negative); Clarity Turbid (Clear); Glucose, Urine (Dipstick) Normal (Negative); Leukocyte Negative Leu/uL (Negative); Nitrite Negative (Negative); Protein, Urine (Dipstick) 200 mg/dL (Neg-Trace); Squamous Epithelial 21-50 HPF (0-3)
--- NOTE | 2020-05-08 13:08 | RAD ---
Exam: Chest one view HISTORY:Hemoptysis. Bradycardia. Shortness of breath Comparison: 08/24/2018 FINDINGS: Cardiac silhouette: Normal Aorta: Unremarkable Pulmonary vessels: Normal Costophrenic angles: Clear LUNGS: No masses or consolidation. Pneumothorax: None Osseous abnormalities: None IMPRESSION: No acute cardiopulmonary process.
[2020-05-08 13:15] LABS: Bacteria/HPF 1+ HPF (None Seen)
[2020-05-08 13:15] LABS: ALT (SGPT) 112 U/L (8-55); AST (SGOT) 45 U/L (5-34); Albumin 4.8 g/dL (3.5-5.0); Alkaline Phosphatase 45 U/L (40-110); Anion Gap 16 mmol/L (10-20); BUN (Urea Nitrogen) 20 mg/dL (7.0-18.7); Bilirubin, Total 1.8 mg/dL (0.2-1.2); Calc. Creatinine Clearance 0 mL/min (70-130); Calcium 9.8 mg/dL (7.8-10.44); Carbon Dioxide 24 mmol/L (22-29); Chloride 101 mmol/L (98-107); Estimated GFR-MDRD 78; Globulin 3.6 g/dL (2.4-3.5); Glucose 114 mg/dL (70-105); Potassium 3.4 mmol/L (3.5-5.1); Protein, Total 8.4 g/dL (6.0-8.3); Sodium 138 mmol/L (136-145)
[2020-05-08 13:18] LABS: Mucous/LPF 4+ LPF (<2+)
[2020-05-08 13:54] LABS: BHCG - Serum Negative (NEGATIVE); Pregs Control Background? CLEAR/WHITE (CLR/WHITE); Pregs Control Bar Appear? YES (CONTROL BAR)
[2020-05-08 14:04] LABS: Amphetamine Not Detected (NotDetected); Barbiturates Screen Not Detected (NotDetected); Benzodiazepine Screen Not Detected (NotDetected); Cocaine Metabolite Screen Not Detected (NotDetected); Medtox Control Line Valid? VALID (VALID); Medtox Reader # READER 1; Methadone Not Detected (NotDetected); Methamphetamine Detected (NotDetected); Opiate Screen Not Detected (NotDetected); Oxycodone Screen Not Detected (NotDetected); Phencyclidine (PCP) Detected (NotDetected); THC/Cannabinoid Screen Detected (NotDetected); Tricyclic Screen Not Detected (NotDetected)
[2020-05-08 14:05] LABS: Acetaminophen Less than 6.0 mcg/mL (10.0-30.0); Alcohol Less than 10 mg/dL (Less than 10); Salicylate Less than 8.0 mg/dL (15.0-30.0)
[2020-05-08 14:20] LABS: Thyroid Stimulating Hormone 0.6075 uIU/mL (0.35-4.94)
--- NOTE | 2020-05-08 15:02 | CT ---
Exam: Head CT without contrast HISTORY: Altered mental status. Bradycardia. Emesis. COMPARISON: 08/24/2018 FINDINGS: Hemorrhage: No intraparenchymal hemorrhage or extra-axial hematoma. Brain parenchyma: Cortical gusman-white matter differentiation is preserved. No mass effect or midline shift. Basilar cisterns are patent. Ventricular system: Ventricles and sulci are patent and symmetric. Calvarium: Intact. Sinuses and mastoid air cells: Adequate aeration. IMPRESSION: No acute intracranial process.
[2020-05-09 14:55] LABS: SARS-CoV-2 MS2 Positive; SARS-CoV-2 N Gene Negative; SARS-CoV-2 S Gene Negative; SARS-CoV-2 orf1ab Negative
--- NOTE | 2020-05-14 14:26 | EKG ---
Test Reason : Blood Pressure : / mmHG Vent. Rate : 059 BPM Atrial Rate : 059 BPM P-R Int : 124 ms QRS Dur : 082 ms QT Int : 468 ms P-R-T Axes : 062 067 064 degrees QTc Int : 463 ms Sinus bradycardia with sinus arrhythmia Otherwise normal ECG Confirmed by ARETHA HAWK M.D. ([id number]), multimedia editor GAIL WAGNER ([id number]) on 05/14/2020 2:25:55 PM Referred By: Confirmed By:ARETHA HAWK M.D.
== END 2020-05-08 17:22 | disposition home or self-care (01) ==
LOC: ERS 11:56
DX: F19.10 Other psychoactive substance abuse, uncomplicated (principal); R21 Rash and other nonspecific skin eruption; L50.9 Urticaria, unspecified; R06.02 Shortness of breath; R10.84 Generalized abdominal pain; R19.7 Diarrhea, unspecified; Z20.828 Contact with and (suspected) exposure to other viral communicable diseases
CPT/HCPCS: 36415; 36416; 51701; 70450; 71045; 80053; 80306; 80307; 81003; 81015; 82550; 83605; 83690; 83880; 84443; 84484; 84703; 85025; 87040; 87086; 87635; 93005; 96361; 96374; 96375; J2310; J2405; U0003